=== PATIENT | male | born 1935 | race Caucasian/White ===

== ENCOUNTER → 2017-02-21 | Outpatient (CLI) | payer MEDICARE, OTHER ==
[~2017-02-21] MED LIST: ASPIRIN; ASPIRIN325 M1 PO; COLACE PO; KEFLEX500 M1; LIPITOR80 MG PO; MIRALAX17 GM PO; PRAVACHOL; PRAVASTATIN PO; VICODIN 5/1 TAB 5/50; ZETIA PO
--- NOTE | ~2017-02-21 | CT14 ---
[facility] A Service of [facility] & [facility] RADIOLOGY TEXT RESULTS PATIENT: [facility] UNIT #: [id number] AGE: [address]: Rick Alfredo MD SEX: M ORDER DR: [id number] [facility] [address] [place], [place] [address] [id number] O MR#: [id number] Acc #: [id number] NAME: KEI PATEL : 1935 SEX: M STUDY DATE/TIME: 02/21/2017 10:01 UNIT: [facility] ROOM: STUDY DESCRIPTION: CT Angio Abdomen and Pelvis Attending Physician: Rick Alfredo Ordering Physician: Earnest Not Listed Primary Care Physician: Kei Brito D.O. MEDICAL IMAGING REPORT This report is preliminary unless electronic signature is present EXAM CT angiogram of the abdomen and pelvis HISTORY Abdominal aortic aneurysm. Patient has undergone prior endovascular repair of an abdominal aortic aneurysm. TECHNIQUE Axial precontrast imaging was obtained through the abdomen and pelvis followed by arterial phase imaging through the abdomen and pelvis and 90-second delayed-phase imaging through the abdomen and pelvis. Following this, 3-D reformatted images were obtained. This CT exam was performed with one or more of the following radiation dose reduction techniques: automatic exposure control, adjustment of mA and/or kV according to patient size, and iterative reconstruction. FINDINGS Images through the lung bases demonstrate background emphysematous changes. The aneurysm sac is decreased in size, now measuring 3.7 cm, previously 4 cm. I do not see any convincing evidence of endoleak. There is probably some mild narrowing involving the origin of the celiac axis. There is a replaced left hepatic artery to the left gastric artery. 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 Stent graft originates from just below the origins of the renal arteries. I think there may be some mild narrowing involving the proximal right renal artery. There is really no significant narrowing seen at the origin of the left renal artery. 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 There is some mild narrowing at the origin of the left internal iliac STS. [facility] A Service of [facility] RADIOLOGY TEXT RESULTS PATIENT: KEI PATEL LOCATION: [facility] : 33 UNIT #: [id number] AGE: [address]: Rick Alfredo MD SEX: M ORDER DR: artery, although it remains patent. Right internal iliac artery does not show any evidence of flow-limiting stenosis. 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 I do think there are some areas of mild narrowing, particularly within the portions of the external iliac arteries bilaterally. Additional eccentric calcified plaque is seen within the common femoral arteries bilaterally and plaque extends into the proximal superficial femoral arteries bilaterally. Patient does have some cholelithiasis. Spleen is within normal limits. There is a small hiatal hernia. Proximal small bowel appears unremarkable. Pancreas is within normal limits for an 81-year-old patient and patient does have a non-obstructing stone within the left kidney. Right kidney appears unremarkable. There is a small fat-containing umbilical hernia. The appendix is visualized and is within normal limits. There is colonic diverticulosis without evidence of diverticulitis. Urinary bladder appears unremarkable. Patient is status post prostatectomy. No free fluid or adenopathy is seen within the pelvis. No aggressive osseous abnormalities are seen. IMPRESSION Patient is status post endovascular repair of an abdominal aortic aneurysm and aneurysm sac is smaller on today's exam, measuring about 3.7 cm. No convincing evidence of endoleak is seen. Please see the body of the report for any other additional incidental findings. Dictated by... Charlee Nascimento M.D. THIS IS AN ELECTRONICALLY VERIFIED REPORT Charlee Nascimento M.D. at 02/22/2017 4:58 PM AFF/pcl TD: 02/21/2017 21:34 JOB #: [id number] MEDICAL IMAGING REPORT Page 1 of 1 COPY
[2017-02-21 16:31] LABS: POC - CREATININE 0.85 mg/dL (0.64-1.27); POC - GFR >60.0 mL/min (>60)
== END | disposition home or self-care (01) ==
LOC: CCAT 09:00
PROVIDERS: Thoracic Surgery (Cardiothoracic Vascular Surgery)
DX: I71.4 Abdominal aortic aneurysm, without rupture (principal); Z95.828 Presence of other vascular implants and grafts
CPT/HCPCS: 74174; 82565; Q9967